=== PATIENT | male | born 1990 | race Caucasian/White ===

== ENCOUNTER 2021-07-09 11:31 | Emergency (ER) | payer OTHER, SELFPAY ==
--- NOTE | ~2021-07-09 | XR_ITS ---
EXAMINATION: XR chest 1V portable DATE: 07/09/2021 15:44 INDICATION: 5 days of fever, chills and shortness of breath TECHNIQUE: frontal view of the chest was obtained. COMPARISON: None FINDINGS: The lungs are clear with no focal airspace opacities, pulmonary edema, pleural effusion or pneumothor ax. The cardiomediastinal silhouette is normal. Visualized bones and soft tissues are unremarkable. IMPRESSION: 1. Normal chest radiograph. Reviewed, dictated and finalized at location A. FORCE SPECIALIST IMPRESSION: 1. Normal chest radiograph.
[2021-07-09 12:04] VITALS: BP 157/73; PULSE 71; RESP 16; TEMP 36.8; O2SAT 100
--- NOTE | 2021-07-09 12:10 | ECG_ITS ---
Measurements Intervals [place] Rate: 78 P: 78 [place]: 151 QRS: 71 QRSD: 101 T: 34 QT: 354 QTc: 403 Interpretive Statements SINUS RHYTHM POSSIBLE LEFT ATRIAL ENLARGEMENT INCOMPLETE RIGHT BUNDLE BRANCH BLOCK BORDERLINE ST-T WAVE ABNORMALITY- INFERIOR LEADS BASELINE ARTIFACT- I, II, III, AVR, AVL, AVF BORDERLINE ECG Electronically Signed On 07-09-2021 15:37:58 DOCUMENT MANAGEMENT SPECIALIST by Harley Meeks D.O.
[2021-07-09 13:46] VITALS: BP 173/74; PULSE 85; RESP 20; TEMP 37.4; O2SAT 98
--- NOTE | 2021-07-09 14:06 | ED.GENADULT ---
HPI - General Adult General Chief complaint: Upper Respiratory Infection Stated complaint: diff breathing/covid pending Time Seen by Provider: 07/09/21 14:05 History of Present Illness HPI narrative: Patient is a 30-year-old male otherwise healthy who comes into the ED today complaining of feeling ill for the last 5 days. He has been having fevers and chills but these have resolved. He is having worsening chest pain or shortness of breath. The chest pain is constant and feels like a heaviness. Not pleuritic. Not worse with coughing. Was seen at an urgent care a few days ago, had a COVID-19 test done and while in the waiting room the patient got a notification that his COVID-19 test came back positive. He is COVID 19 vaccinated. Related Data Allergies Allergy/AdvReac Type Severity Reaction Status Date / Time No Known Allergies Allergy Verified 07/09/21 13:50 Review of Systems Constitutional: Constitutional: Reports as per HPI, Denies fever(s), Denies night sweats and Denies weakness Cardiovascular: Cardiovascular: Reports chest pain, Denies edema, Denies leg edema, Denies dyspnea and Denies orthopnea Respiratory: Respiratory: Reports chest congestion, Reports cough, Reports dyspnea and Reports dyspnea on exertion Gastrointestinal: Gastrointestinal: Denies abdominal pain, Denies constipation, Denies diarrhea, Denies nausea and Denies vomiting Musculoskeletal: Musculoskeletal: Denies abnormal gait, Denies back pain, Denies numbness and Denies tingling Neurologic: Denies Abnormal speech present, Denies abnormal gait, Denies numbness, Denies tingling and Denies weakness Psychiatric: Psychiatric: Denies homicidal ideation and Denies suicidal ideation Exam Const: General: cooperative, healthy appearing, comfortable, no acute distress, well developed, alert, awake and Physically active Orientation/consciousness: patient oriented x3 Other: Pleasant, well-appearing HENMT: Head: normal to inspection, normocephalic and atraumatic Ears: external ears normal General nose exam: Normal external nose present Eyes: Pupils: Equal, round and reactive pupils present EOM: EOMs intact bilaterally Neck: Neck: normal visual inspection Chest: Chest palpation & inspection: normal inspection of the chest and no tenderness Resp: Effort & Inspection: normal respiratory effort and able to speak in complete sentences Auscultation: clear to auscultation bilaterally Cardio: Rate: regular rate Rhythm: regular rhythm GI: Inspection: normal to inspection GI Palp: No abdominal tenderness : General: Yes no CVA tenderness Back/Spine/Pelvis: Back: no CVA tenderness Skin: General skin exam: normal color and no rashes or lesions noted Lesions: no lesions Neuro: General: patient oriented x3, no focal motor deficits and CN's II-XI intact bilaterally Cranial nerves: Yes Equal, round and reactive pupils present Speech: No Abnormal speech present Extrem: General: normal to inspection and full ROM Psych: Appearance: grossly normal and well kempt Mental Status: mental status grossly normal Speech and movement: Normal speech and movement present Affect: normal affect Thought process: Normal thought process present Course Vital Signs Vital signs: Vital Signs Temperature 36.8 C 07/09/21 12:04 Pulse Rate 71 07/09/21 12:04 Respiratory Rate 16 07/09/21 12:04 Blood Pressure 157/73 H 07/09/21 12:04 Pulse Oximetry 100 07/09/21 12:04 Temperature 37.4 C 07/09/21 13:46 Pulse Rate 85 07/09/21 13:46 Respiratory Rate 20 07/09/21 13:46 Blood Pressure 173/74 H 07/09/21 13:46 Pulse Oximetry 98 07/09/21 13:46 Medical Decision Making MDM Narrative Medical decision making narrative: Work-up unremarkable. Symptoms felt to be related to COVID-19. Discussed with patient plan for discharge with supportive care and return precautions. Patient agreeable Vital Signs Vital Signs: Vital Signs Temperature 36.8 C 07/09/21
[2021-07-09] MEDS: ACETAMINOPHEN 500 MG TABLET 1000 MG PO (15:41)
[2021-07-09] MEDS: IBUPROFEN 600 MG TABLET PO (15:42)
[2021-07-09 16:26] LABS: Troponin I < 0.012 ng/mL (0.000-0.034)
== END 2021-07-09 17:13 | disposition home or self-care (01) ==
PROVIDERS: Physician Assistant Medical; Emergency Provider Emergency Medicine
DX: U07.1 COVID-19 (principal); I45.10 Unspecified right bundle-branch block; R94.31 Abnormal electrocardiogram [ECG] [EKG]
CPT/HCPCS: 36415; 71045; 84484; 93005; 99284; A9270